=== PATIENT | male | born 1955 | race Two or more races ===

== ENCOUNTER 2025-03-13 09:11 | Emergency (ER) | payer MEDICARE ==
[~2025-03-13] VITALS: Ht 182.9 cm; Wt 63.5 kg
[2025-03-13 09:52] LABS: PLATELET COUNT (AUTO) 243 K/uL (150-450); RED BLOOD CELL COUNT(AUTO) 4.89 MIL/uL (4.5-6.0); RED CELL DISTRIBUTION WIDTH 13.4 % (11.5-15.0); WHITE BLOOD COUNT (AUTO) 10.9 K/uL (4.3-11.0)
[2025-03-13] MEDS: IV NS 0.9% 1,000 ML BAG IV ONE (09:52)
[2025-03-13 09:59] LABS: CALCIUM, SERUM 9.6 mg/dL (8.5-10.1); CREATININE 0.9 mg/dL (0.6-1.3); SODIUM SERUM 139.0 mmol/L (136-145); UREA NITROGEN, BLOOD 12.0 mg/dL (7-18)
[2025-03-13 10:10] LABS: ASPARTATE AMINOTRANSFERASE 18.0 U/L (15-37); TOTAL PROTEIN, SERUM 8.0 g/dL (6.4-8.2)
[2025-03-13 10:51] LABS: APPEARANCE,URINE CLEAR (CLEAR); BLOOD, URINE 1+ Ery/uL (NEGATIVE); LEUKOCYTE ESTERASE ,URINE 1+ (NEGATIVE); NITRITE, URINE NEGATIVE (NEGATIVE); UGLUCOSE NEGATIVE (NEGATIVE)
[2025-03-13 11:08] LABS: ADD URINE CULTURE YES; SQUAMOUS EPITHELIAL CELL,UR 0-2 /HPF (None Seen)
[2025-03-13 12:43] VITALS: BP 158/88; TEMP 98; O2SAT 99
== END 2025-03-13 12:43 | disposition home or self-care (01) ==
LOC: ER 09:24
DX: N31.2 Flaccid neuropathic bladder, not elsewhere classified (principal); N40.1 Benign prostatic hyperplasia with lower urinary tract symptoms; R33.8 Other retention of urine; Z87.442 Personal history of urinary calculi
CPT/HCPCS: 99285; 74176; 96360; 51702; 85025; 80048; 87086; 83690; 80076; 81001; 36415; J7030; 87186-TC

== ENCOUNTER 2025-03-24 20:48 | Inpatient (IN) | payer MEDICARE ==
[~2025-03-24] VITALS: Ht 182.9 cm; Wt 68.1 kg
[2025-03-24] MEDS: IV NS 0.9% 1,000 ML BAG IV ONE (21:40)
[2025-03-24] MEDS ORDERED: KETOROLAC TROMETHAMINE 15 MG/ML VIAL ONE (21:41)
[2025-03-24 21:43] LABS: PLATELET COUNT (AUTO) 167 K/uL (150-450); RED BLOOD CELL COUNT(AUTO) 4.49 MIL/uL (4.5-6.0); RED CELL DISTRIBUTION WIDTH 13.2 % (11.5-15.0); WHITE BLOOD COUNT (AUTO) 12.5 K/uL (4.3-11.0)
[2025-03-24] MEDS: KETOROLAC TROMETHAMINE 15 MG/ML VIAL IV ONE (21:47)
[2025-03-24 21:51] LABS: CALCIUM, SERUM 8.9 mg/dL (8.5-10.1); CREATININE 1.0 mg/dL (0.6-1.3); SODIUM SERUM 133.0 mmol/L (136-145); UREA NITROGEN, BLOOD 13.0 mg/dL (7-18)
[2025-03-24 21:52] LABS: APPEARANCE,URINE CLEAR (CLEAR); BLOOD, URINE 1+ Ery/uL (NEGATIVE); LEUKOCYTE ESTERASE ,URINE 3+ (NEGATIVE); NITRITE, URINE POSITIVE (NEGATIVE); UGLUCOSE NEGATIVE (NEGATIVE)
[2025-03-24 21:56] LABS: ASPARTATE AMINOTRANSFERASE 14.0 U/L (15-37); TOTAL PROTEIN, SERUM 6.8 g/dL (6.4-8.2)
[2025-03-24] MEDS ORDERED: CEFTRIAXONE 1GM BAG (ER ONLY) 50 ML IV ONE (22:27)
[2025-03-24] MEDS: CEFTRIAXONE 1 G in IV D5W 50 ML IV ONE (22:52)
[2025-03-24 22:53] LABS: ADD URINE CULTURE YES
[2025-03-24 22:54] LABS: SQUAMOUS EPITHELIAL CELL,UR Rare /HPF (None Seen)
[2025-03-25] VITALS: O2SAT 99
[2025-03-25] MEDS ORDERED: ACETAMINOPHEN 325 MG TABLET PO PRN (01:30)
[2025-03-25] MEDS ORDERED: MAGNESIUM HYDROXIDE 30 ML UDC PO PRN (01:30)
[2025-03-25] MEDS ORDERED: ONDANSETRON HCL/PF 4 MG/2 ML VIAL IVP PRN (01:30)
[2025-03-25] MEDS ORDERED: TRAMADOL HCL 50 MG TABLET PO PRN (01:30)
[2025-03-25] MEDS ORDERED: KETOROLAC TROMETHAMINE INJ 30 MG/ML VIAL IV PRN (01:30)
[2025-03-25] MEDS ORDERED: MAG HYDROX/AL HYDROX/SIMETH 30 ML UDC PO PRN (01:30)
[2025-03-25] MEDS: IV NS 0.9% 1,000 ML IV SCH (02:22)
[2025-03-25 06:47] LABS: PLATELET COUNT (AUTO) 143 K/uL (150-450); RED BLOOD CELL COUNT(AUTO) 4.25 MIL/uL (4.5-6.0); RED CELL DISTRIBUTION WIDTH 13.2 % (11.5-15.0); WHITE BLOOD COUNT (AUTO) 8.6 K/uL (4.3-11.0)
[2025-03-25 07:15] LABS: CALCIUM, SERUM 8.8 mg/dL (8.5-10.1); CREATININE 0.9 mg/dL (0.6-1.3); PHOSPHORUS 2.8 mg/dL (2.5-4.9); SODIUM SERUM 140.0 mmol/L (136-145); UREA NITROGEN, BLOOD 13.0 mg/dL (7-18)
[2025-03-25 08:00] VITALS: BP 113/66; TEMP 99.7; O2SAT 98
[2025-03-25] MEDS: PANTOPRAZOLE 40 MG TABLET.DR PO SCH (08:24)
[2025-03-25] MEDS: CEFTRIAXONE 1 G in IV D5W 50 ML IV SCH (08:39)
[2025-03-25] MEDS ORDERED: MINERAL OIL/PETROL OINT 396 GM JAR TP PRN (15:30)
[2025-03-25] MEDS: IV NS 0.9% 1,000 ML IV PRN (15:36)
[2025-03-25 16:00] VITALS: BP 123/68; TEMP 98.8; O2SAT 98
[2025-03-25] MEDS: LACTULOSE 10 G/15 ML UDC (PYXIS) PO PRN (16:11)
[2025-03-25] MEDS ORDERED: BISACODYL (5 MG) 5 MG TABLET.DR PO PRN (16:30)
[2025-03-26 07:02] LABS: CALCIUM, SERUM 8.5 mg/dL (8.5-10.1); CREATININE 0.9 mg/dL (0.6-1.3); PHOSPHORUS 2.5 mg/dL (2.5-4.9); SODIUM SERUM 143.0 mmol/L (136-145); UREA NITROGEN, BLOOD 9.0 mg/dL (7-18)
[2025-03-26 07:55] LABS: PLATELET COUNT (AUTO) 141 K/uL (150-450); RED BLOOD CELL COUNT(AUTO) 4.38 MIL/uL (4.5-6.0); RED CELL DISTRIBUTION WIDTH 13.5 % (11.5-15.0); WHITE BLOOD COUNT (AUTO) 6.8 K/uL (4.3-11.0)
[2025-03-26 08:00] VITALS: BP 115/56; TEMP 98.4; O2SAT 98
[2025-03-26 16:00] VITALS: BP 117/77; TEMP 98.8; O2SAT 98
[2025-03-26 20:00] VITALS: BP 119/75; TEMP 99.1; O2SAT 99
[2025-03-27 07:45] LABS: PLATELET COUNT (AUTO) 151 K/uL (150-450); RED BLOOD CELL COUNT(AUTO) 4.59 MIL/uL (4.5-6.0); RED CELL DISTRIBUTION WIDTH 13.4 % (11.5-15.0); WHITE BLOOD COUNT (AUTO) 5.8 K/uL (4.3-11.0)
[2025-03-27 07:47] LABS: CALCIUM, SERUM 9.4 mg/dL (8.5-10.1); CREATININE 0.8 mg/dL (0.6-1.3); PHOSPHORUS 3.0 mg/dL (2.5-4.9); SODIUM SERUM 143.0 mmol/L (136-145); UREA NITROGEN, BLOOD 11.0 mg/dL (7-18)
[2025-03-27 08:00] VITALS: BP 120/85; TEMP 98.6; O2SAT 98
[2025-03-27] MEDS ORDERED: LEVO500T90 PO (11:31)
[2025-03-27] MEDS ORDERED: CEPH500C2 PO (17:42)
[2025-03-27] MEDS ORDERED: SULF1TAB48 PO (17:43)
== END 2025-03-27 13:45 | disposition home or self-care (01) | DRG 698 ==
LOC: ER 21:02 → MED 03-25 00:11
PROVIDERS: ADMIT Nurse Practitioner Acute Care; ATTEND Nurse Practitioner Family
DX: T83.592A Infection and inflammatory reaction due to indwelling ureteral stent, initial encounter (principal); A41.50 Gram-negative sepsis, unspecified; E87.1 Hypo-osmolality and hyponatremia; N13.6 Pyonephrosis; Y73.2 Prosthetic and other implants, materials and accessory gastroenterology and urology devices associated with adverse incidents; Y84.8 Other medical procedures as the cause of abnormal reaction of the patient, or of later complication, without mention of misadventure at the time of the procedure; Y92.89 Other specified places as the place of occurrence of the external cause; N20.0 Calculus of kidney; N31.8 Other neuromuscular dysfunction of bladder; Z87.442 Personal history of urinary calculi
CPT/HCPCS: 36415; 71045-TC; 80048-TC; 80076-TC; 81001; 83605-TC; 83735-TC; 84100-TC; 85025-TC; 87040-TC; 87086-TC; 87186-TC; A4223; G0378; J0696; J1885; J7030; J7060

== ENCOUNTER 2025-04-04 17:35 | Emergency (ER) | payer MEDICARE ==
[~2025-04-04] VITALS: Ht 182.9 cm; Wt 59.0 kg
[2025-04-04 17:35] VITALS: TEMP 98.7
[~2025-04-04 17:35] MED LIST: SULF1TAB48 PO
[2025-04-04] MEDS: BENZONATATE 100 MG CAPSULE PO ONE (19:00)
[2025-04-04] MEDS ORDERED: BENZONATATE 100 MG CAPSULE PO ONE (19:01)
[2025-04-04 19:06] LABS: PLATELET COUNT (AUTO) 260 K/uL (150-450); RED BLOOD CELL COUNT(AUTO) 4.64 MIL/uL (4.5-6.0); RED CELL DISTRIBUTION WIDTH 13.3 % (11.5-15.0); WHITE BLOOD COUNT (AUTO) 8.3 K/uL (4.3-11.0)
[2025-04-04 19:19] LABS: CALCIUM, SERUM 8.5 mg/dL (8.5-10.1); CREATININE 1.0 mg/dL (0.6-1.3); SODIUM SERUM 133 mmol/L (136-145); UREA NITROGEN, BLOOD 12 mg/dL (7-18)
[2025-04-04 19:32] LABS: ASPARTATE AMINOTRANSFERASE 21 U/L (15-37); NT-PRO BNP 182 pg/mL (0-125); TOTAL PROTEIN, SERUM 7.0 g/dL (6.4-8.2)
[2025-04-04 22:50] LABS: APPEARANCE,URINE SLIGHTLY CLOUDY (CLEAR); BLOOD, URINE 2+ Ery/uL (NEGATIVE); LEUKOCYTE ESTERASE ,URINE 2+ (NEGATIVE); NITRITE, URINE NEGATIVE (NEGATIVE); UGLUCOSE NEGATIVE (NEGATIVE)
[2025-04-04 22:59] LABS: ADD URINE CULTURE YES; SQUAMOUS EPITHELIAL CELL,UR 0-2 /HPF (None Seen)
[2025-04-04 23:02] LABS: YEAST,URINE Moderate /HPF (None Seen)
[2025-04-04 23:31] VITALS: BP 123/77; O2SAT 97
== END 2025-04-04 23:10 | disposition home or self-care (01) ==
LOC: ER 17:38
DX: R05.9 Cough, unspecified (principal); R07.9 Chest pain, unspecified; R50.9 Fever, unspecified; N40.0 Benign prostatic hyperplasia without lower urinary tract symptoms; Z87.440 Personal history of urinary (tract) infections; Z88.1 Allergy status to other antibiotic agents; Z20.822 Contact with and (suspected) exposure to COVID-19
CPT/HCPCS: 36415; 71045-TC; 80048-TC; 80076-TC; 81001; 83880; 84484-TC; 85025-TC